=== PATIENT | female | born 1975 | race Caucasian/White ===

== ENCOUNTER → 2020-01-27 | Outpatient (CLI) | payer OTHER ==
[~2020-01-27] VITALS: Ht 154.9 cm; Wt 75.7 kg
[~2020-01-27] MED LIST: ASPIR 8181 MG PO; CRESTOR10 MG PO; GLYBURIDE5 MG PO; JANUVIA100 MG PO; LISINOPRIL10 MG PO; NP THYROID60 MG PO; PIOGLITAZONE HC45 MG PO; ZZZQUIL50 MG/30 M PO
[2020-01-27 12:55] LABS: BASOPHILS # (AUTO) 0.1 (0.0-0.1); EOSINOPHILS # (AUTO) 0.2 (0.0-0.4); EOSINOPHILS % 2.6 % (0.0-6.0); HEMATOCRIT 44.9 % (34.2-44.1); HEMOGLOBIN 15.5 g/dL (12.0-16.0); LYMPHOCYTES # (AUTO) 1.9 (1.0-3.2); MEAN CORPUSCULAR HEMOGLOBIN 29.6 pg (28-32); MEAN CORPUSCULAR HGB CONC 34.5 g/dL (31-35); MEAN CORPUSCULAR VOLUME 85.9 fL (81-99); MONOCYTES # (AUTO) 0.3 (0.2-0.8); MONOCYTES % 5.5 % (4.4-11.3); NEUTROPHILS # (AUTO) 3.7 (2.1-6.9); NEUTROPHILS % 59.3 % (38.7-80.0); PLATELET COUNT 196 x10e3/uL (140-360); RED BLOOD COUNT 5.23 x10e6/uL (3.6-5.1); RED CELL DISTRIBUTION WIDTH 12.3 % (11.7-14.4)
[2020-01-27 13:31] LABS: INR 0.9; PROTHROMBIN TIME 12.7 seconds (11.9-14.5)
[2020-01-27 13:33] LABS: ALBUMIN 3.9 g/dL (3.5-5.0); ALBUMIN/GLOBULIN RATIO 1.2 (0.8-2.0); ANION GAP 11.1 mmol/L (8-16); CALCIUM 8.9 mg/dL (8.4-10.2); POTASSIUM 4.1 mmol/L (3.5-5.1)
== END ==
LOC: DX 15:11 → EDSTATUS 02-02 08:00
PROVIDERS: ATTEND Internal Medicine
DX: Z01.818 Encounter for other preprocedural examination (principal); R94.39 Abnormal result of other cardiovascular function study; I25.10 Atherosclerotic heart disease of native coronary artery without angina pectoris
CPT/HCPCS: 36415; 80053; 85025; 85610

== ENCOUNTER → 2020-05-19 | Day surgery (SDC) | payer OTHER ==
[2020-05-16 10:28] LABS: BASOPHILS # (AUTO) 0.1 (0.0-0.1); BASOPHILS % 1.1 % (0.0-1.0); EOSINOPHILS # (AUTO) 0.2 (0.0-0.4); EOSINOPHILS % 3.4 % (0.0-6.0); HEMATOCRIT 42.8 % (34.2-44.1); HEMOGLOBIN 14.2 g/dL (12.0-16.0); LYMPHOCYTES # (AUTO) 1.8 (1.0-3.2); LYMPHOCYTES % 31.3 % (18.0-39.1); MEAN CORPUSCULAR HEMOGLOBIN 28.8 pg (28-32); MEAN CORPUSCULAR HGB CONC 33.2 g/dL (31-35); MEAN CORPUSCULAR VOLUME 86.8 fL (81-99); MONOCYTES # (AUTO) 0.4 (0.2-0.8); MONOCYTES % 7.2 % (4.4-11.3); NEUTROPHILS # (AUTO) 3.2 (2.1-6.9); NEUTROPHILS % 56.6 % (38.7-80.0); PLATELET COUNT 209 x10e3/uL (140-360); RED BLOOD COUNT 4.93 x10e6/uL (3.6-5.1); RED CELL DISTRIBUTION WIDTH 12.5 % (11.7-14.4)
[2020-05-16 11:01] LABS: ALANINE AMINOTRANSFERASE 29 IU/L (0-55); ALBUMIN 3.9 g/dL (3.5-5.0); ALBUMIN/GLOBULIN RATIO 1.1 (0.8-2.0); ALKALINE PHOSPHATASE 89 IU/L (40-150); ANION GAP 10.9 mmol/L (8-16); BLOOD UREA NITROGEN 9 mg/dL (7-26); BUN/CREATININE RATIO 13 (6-25); CALCIUM 9.4 mg/dL (8.4-10.2); CARBON DIOXIDE 31 mmol/L (22-29); CHLORIDE 102 mmol/L (98-107); CREATININE, SERUM 0.71 mg/dL (0.57-1.11); EST GLOMERULAR FILTRATION RATE > 60 ML/MIN (60-); GLUCOSE 166 mg/dL (74-118); POTASSIUM 3.9 mmol/L (3.5-5.1); SODIUM 140 mmol/L (136-145)
[2020-05-16 11:07] LABS: INR 0.88; PROTHROMBIN TIME 12.5 seconds (11.9-14.5)
[~2020-05-19] VITALS: Ht 154.9 cm; Wt 74.4 kg
[2020-05-19] VITALS (9 sets, daily range): BP systolic 125–184; BP diastolic 67–96
[~2020-05-19] MED LIST changes: +FENTANYL CITRATE/PF 100MCG/2 ML INJ ONE; +GLIMEPIRIDE2 MG PO; +HEPARIN SOD (PORCINE) 1000 UNIT/ML 30ML ONE; +HEPARIN SOD/SOD CHLORIDE 2,000 ML ONE; +IOPAMIDOL 370 MG/ML 200 ML INFUS..BTL INJ ONE; +LIDOCAINE HCL 2% LOCAL 20 ML VIAL ONE; +MIDAZOLAM HCL 2 MG/2 ML VIAL ONE; +NITROGLYCERIN/D5W 200 MCG/ML 250 ML ONE; +SODIUM CHLORIDE 0.9% 1000ML 1,000 ML ONE; +ULTRAM50 MG PO; +VERAPAMIL HCL 2.5 MG/ML 2 ML VIAL ONE; +ZOLPIDEM TARTRAT5 MG PO
--- NOTE | 2020-05-19 17:00 | Operative Report ---
DATE OF PROCEDURE: 05/19/2020 SURGEON: Lucita Parkinson MD PROCEDURE TITLE: Cardiac catheterization. PROCEDURES PERFORMED: 1. Selective coronary angiography x2. 2. Left heart catheterization. INDICATION: 1. Abnormal nuclear stress test. 2. Chest pain. SEDATION: 1. Fentanyl 50 mcg. 2. Versed 2.5 mg. INFORMED CONSENT: Informed consent was obtained and documented in the chart. PROCEDURE IN DETAIL: The patient was brought to the cardiac catheterization laboratory in a fasting state after written informed consent was obtained. Both groins and right wrist were prepped and draped in the usual sterile fashion. A 1% lidocaine was used to achieve local anesthesia over the right radial artery. The right radial artery was accessed using micropuncture needle and 5-[place] sheath was inserted via modified Seldinger technique. A 5-[place] TIG was inserted and advanced into the ascending aorta and left ventricle. Hemodynamic measurements were obtained. TIG was withdrawn into the ascending aorta and attempts to obtain and left right coronary arteries were unsuccessful. The TIG was withdrawn over exchange length J-wire and a 5-[place] JL 3.5 was inserted and advanced into the ascending aorta. The left main coronary artery was cannulated under fluoroscopic guidance. Selective coronary angiography was performed. The JL 3.5 was exchanged for a 5-[place] 3DRC over an exchange length J-wire. Attempts were made to cannulate the right coronary artery using the 3DRC were unsuccessful and this was exchanged for a 5-[place] JR4 over the exchange length J-wire. The right coronary artery was cannulated under fluoroscopic guidance and selective coronary angiography was performed. The JR4 was withdrawn followed by the sheath. TR band was applied to achieve adequate hemostasis. No immediate complications were noted. FINDINGS: 1. The left main coronary artery bifurcates into the LAD and circumflex arteries. The LAD is a moderate caliber vessel. There is approximately 10% stenosis at the ostium. The distal LAD was a small vessel with diffuse disease. The circumflex is a large caliber vessel that gives rise to a large branching OM1. Distal to the OM1, the circumflex is small with an area of 80% stenosis in the distal circumflex. 2. The RCA is a large caliber vessel which gives rise to the PDA. Luminal irregularities were noted. 3. LV pressure 124/8 mmHg. LVEDP 11 mmHg. 4. Aortic pressure 118/77 mmHg. IMPRESSION: 1. Coronary artery disease. 2. Normal LV filling pressures. RECOMMENDATIONS: The distal circumflex is a small vessel. Recommend aggressive medical therapy. Lucita Parkinson MD ABS/MODL /[id number]
== END | disposition home or self-care (01) ==
LOC: CATH LAB 06:00
PROVIDERS: ATTEND Internal Medicine
DX: I25.10 Atherosclerotic heart disease of native coronary artery without angina pectoris (principal); R94.39 Abnormal result of other cardiovascular function study; I10 Essential (primary) hypertension; E11.9 Type 2 diabetes mellitus without complications; E03.9 Hypothyroidism, unspecified; Z72.0 Tobacco use; Z01.812 Encounter for preprocedural laboratory examination; Z11.59 Encounter for screening for other viral diseases; Z79.82 Long term (current) use of aspirin; Z79.84 Long term (current) use of oral hypoglycemic drugs
CPT/HCPCS: 36415; 80053; 85025; 85610; 87635; 93458; C1769 ×2; C1887; J1644; J2001; J2250; J3010; J7030; Q9967; 99152; 99153